=== PATIENT | female | born 1995 | race Caucasian/White ===

== ENCOUNTER 2017-02-10 15:57 | Outpatient (CLI) | payer MEDICAID ==
--- NOTE | ~2017-02-10 | HP ---
PATIENT'S NAME: CORNELIUS REA [facility] AGE: 21 Y [address] ROOM: [address] [address] LOCATION: BS ADMIT DATE: 02/10/2017 History & Physical DISCHARGE DATE: 02/10/2017 FAMILY PHYSICIAN: Elpidio Botello MD ATTENDING PHYSICIAN: Rahul Larios DATE OF SERVICE: REASON FOR ADMISSION: deceleration. HISTORY OF PRESENT ILLNESS: The patient is a 21-year-old, G2, P1-0-0-1 with intrauterine at 34 weeks and 6 days. This is complicated by IUGR less than at 5th percentile. She was seen in the office today and had NST done and had a couple of times where the heart rate was noted to be in the 80s. It was unknown if this was maternal or ; therefore, it was recommended she come over for an extended monitoring. She had normal FARIDEH in the clinic today. PHYSICAL EXAMINATION: VITAL SIGNS: 105/57, heart rate 93, and temperature 98. GENERAL: She is alert and oriented in no acute distress. ABDOMEN: Soft, nontender, gravid. : heart tones, baseline, 135, moderate variability, positive accels, no decels. [employer] irritability. ASSESSMENT: The patient is a 21-year-old, G2, P1-0-0-1, with intrauterine at 34 weeks, 6 days who presents for extended monitoring. PLAN: Okay for discharge home as scales has been reassuring since admission. We will review labor precautions. MD FAYE MOULTON/kimberly /[id number] D: T: HISTORY & PHYSICAL
[~2017-02-10 15:57] MED LIST: ACETAMINOPHEN325 MG PO; AUGMENTIN250 MG PO; CELEXA10 MG PO; PRENATAL 1+1)(P1 TAB PO; PROVENTIL OR V6.7 GM INH; augmentin
[2017-02-10] MEDS ORDERED: ZOLOFT25 MG PO (16:51)
--- NOTE | 2017-02-10 17:36 | NUR ---
Last VS: T:98.0 P:93 R:16 BP: 105/57 Pain ratin. Last pain med: None given Medicated at: Effective: Yes FHT: 145 Dilatation: No VE done during admission process Significant event: FHT's reactive with accels. Has occasional irregular contractions that she rates a "5".
== END 2017-02-10 19:45 | disposition disaster alternative care site (69) ==
LOC: GOBS 15:57 → GOBM 15:57
DX: O76 Abnormality in fetal heart rate and rhythm complicating labor and delivery (principal); O36.5930 Maternal care for other known or suspected poor fetal growth, third trimester, not applicable or unspecified; Z3A.34 34 weeks gestation of pregnancy
CPT/HCPCS: G0463

== ENCOUNTER 2017-02-25 18:02 | Inpatient (IN) | payer MEDICAID ==
[~2017-02-25] VITALS: Ht 154.9 cm; Wt 59.3 kg
--- NOTE | ~2017-02-25 | OR ---
PATIENT'S NAME: CORNELIUS REA [facility] AGE: 21 Y [address] ROOM: [place] [id number] LOCATION: [facility] ADMIT DATE: 02/25/2017 OR/Procedure Report DISCHARGE DATE: FAMILY PHYSICIAN: Elpidio Botello MD ATTENDING PHYSICIAN: Rahul Larios SURGEON: Rahul Larios MD INTERNATIONAL MARKETING MANAGER: DATE OF PROCEDURE: 02/26/2017 Vaginal Delivery Note PREOPERATIVE DIAGNOSES: 1. Intrauterine , 37 weeks 1 day. 2. intrauterine growth retardation or restriction less than the 3rd percentile. 3. Insufficient care. 4. Tobacco use. 5. History of delayed hemorrhage. POSTOPERATIVE DIAGNOSES: 1. Intrauterine , 37 weeks 1 day. 2. intrauterine growth retardation or restriction less than the 3rd percentile. 3. Insufficient care. 4. Tobacco use. 5. History of delayed hemorrhage. ANESTHESIA: Epidural. FINDINGS: Viable male with Score of 8 and 9 and weight of 2960 g. Placenta intact with 3-vessel cord. Right-sided cleft lip and cleft palate. ESTIMATED BLOOD LOSS: 300 mL. INDICATIONS: The patient is a 21-year-old female with an intrauterine at 37 weeks 0 days, who presented last night for cervical ripening. She had 2 doses of gel. She then had Pitocin started. She was found to be closed on admission. She is GBS negative. After 2 doses of gel, she then had Pitocin started. She progressed to 2 cm and had artificial rupture of membranes of clear fluid. Pitocin was continued per protocol, and she progressed to complete and started maternal expulsive efforts. DESCRIPTION OF PROCEDURE: The patient was placed in dorsal lithotomy. She was prepped and draped in the usual fashion. head was delivered with PATIENT'S NAME: CORNELIUS REA [facility] AGE: 21 Y [address] ROOM: [place] [address] LOCATION: [facility] ADMIT DATE: 02/25/2017 OR/Procedure Report DISCHARGE DATE: FAMILY PHYSICIAN: Elpidio Botello MD ATTENDING PHYSICIAN: Rahul Larios expulsive effort in the MELISSA position. The anterior shoulder then delivered followed by the remainder of the fetus. The cord was clamped and cut, and the was handed to the awaiting delivery nurse. A cleft lip and cleft palate were noted. Cord gases were obtained. Cord blood was obtained. The placenta was then delivered spontaneously intact with 3-vessel cord. No cervical, vaginal, or perineal lacerations were noted. Instrument, sponge, and needle counts were correct at the conclusion of the case. MD FAYE MOULTON/kimberly /[id number] d: 02/26/172204 t: 03/06/17 1340, OPERATIVE SUMMARY
[~2017-02-25 18:02] MED LIST changes: +ZOLOFT25 MG PO
[2017-02-25 19:44] LABS: BASOPHIL % 0.3 %; EOSINOPHIL # 0.1 K/uL (0.0-0.5); EOSINOPHIL % 0.8 %; HEMATOCRIT 34.9 % (33.0-46.0); HEMOGLOBIN 11.8 g/dL (11.0-15.0); IMMATURE GRANULOCYTE # 0.1 K/uL (0.0-0.3); LYMPHOCYTE # 2.1 K/uL (0.8-4.0); MCHC 33.8 gm/dL (32.0-36.5); MCV 88.8 fl (83.0-98.0); MONOCYTE # 0.7 K/uL (0.0-1.0); MONOCYTE % 7.3 %; MPV 10.5 fl (9.4-12.4); NEUTROPHIL # (ANC) 6.2 K/uL (1.8-7.8); NEUTROPHIL % 67.6 %; NRBC % 0 /100WBC (0-0.00); PLATELET COUNT 240 K/uL (150-450); RBC 3.93 M/uL (3.50-5.00); WBC 9.1 K/uL (4.0-11.0)
[2017-02-26 15:11] LABS: BICARBONATE 21.5 mmol/L (18.0-23.0); PCO2 46 mmHg (35-45); PO2 18 mmHg (80-90)
--- NOTE | 2017-02-26 17:46 | NUR ---
VSS, has not been up, fundus firm, -1, small flow. NIA. Suraj at 1530. Pt requests Zoloft in AM.
[2017-02-27 05:01] LABS: BASOPHIL % 0.3 %; EOSINOPHIL # 0.1 K/uL (0.0-0.5); EOSINOPHIL % 0.6 %; HEMATOCRIT 32.4 % (33.0-46.0); HEMOGLOBIN 10.8 g/dL (11.0-15.0); IMMATURE GRANULOCYTE # 0.1 K/uL (0.0-0.3); IMMATURE GRANULOCYTE % 0.9 %; LYMPHOCYTE # 2.3 K/uL (0.8-4.0); LYMPHOCYTE % 19.6 %; MCH 30.1 pg (27.0-34.0); MCHC 33.3 gm/dL (32.0-36.5); MCV 90.3 fl (83.0-98.0); MONOCYTE # 0.8 K/uL (0.0-1.0); MONOCYTE % 7.1 %; MPV 10.2 fl (9.4-12.4); NEUTROPHIL # (ANC) 8.3 K/uL (1.8-7.8); NEUTROPHIL % 71.5 %; NRBC % 0 /100WBC (0-0.00); PLATELET COUNT 223 K/uL (150-450); RBC 3.59 M/uL (3.50-5.00); RDW-CV 13.1 % (11.9-14.6); WBC 11.6 K/uL (4.0-11.0)
--- NOTE | 2017-02-27 15:47 | NUR ---
Met with patient at the NICU today. Introduced myself and explained my role of the CM department. Baby was born with a cleft palate so he is in the NICU and mom and dad are learning how to feed him. I provided Guerda with a list of community resources and voucher for the [facility]. Mom is not yet connected with [facility] so I encouraged her to do that. I also instructed her to contact Medicaid and notify them of Vin's . I provided Guerda with reading material on post depression and reviewed signs and symptoms to watch for. Patient does have a history so I stressed the importance of notifying her physician if she starts to experience any of the signs. Guerda states that she does not have custody of her 2 year old son as she voluntarily gave her aunt temporary custody of him. She also states Vin's father does not have custody of his 5 year old son, that this child resides with his mom. I did ask Guerda if [facility] or CPS was involved when she gave her aunt temporary custody of her 2 year old and she states there was no involvement with [facility]. Vin will need to use a Special Needs Feeder for all feeds. I called [facility], [place], [facility], [facility], [employer], [employer], and [facility] and none of these sell or provide the Special Needs Feeder. [employer] does sell them so encouraged mom to get a few from there. Will continue to follow as baby will likely be here until next week.
--- NOTE | 2017-02-27 18:00 | NUR ---
02/27/17 1800: vss. Last pain meds Motrin or Tylenol this am. In Nicu freq.. Pumping breasts.
--- NOTE | 2017-02-28 05:55 | NUR ---
Last VS: T:98.7 P:65 R: 20 BP: 116/62 Pain rating: Last pain med: Medicated at: Effective: Breasts: , Nipples: Fundus:, , Lochia: , Epis/Perineum: , , Voiding well: Significant event: pt up ad maico. walks to nicu often to feed baby.
[2017-02-28] MEDS ORDERED: SURFAK240 MG PO (08:54)
[2017-02-28] MEDS ORDERED: NICODERM / HABIT7 MG TRANS (08:58)
[2017-02-28] MEDS ORDERED: NICOTINE TRANS (09:00)
[2017-02-28] MEDS ORDERED: ZOLOFT25 MG PO (09:02)
[2017-02-28] MEDS ORDERED: MOTRIN800 MG PO (09:02)
[2017-02-28] MEDS ORDERED: TUMS200 MG PO (09:02)
[2017-02-28] MEDS ORDERED: PERCOCET 5-3251 EACH PO (09:03)
[2017-02-28] MEDS ORDERED: LANSINOH7 GM TOP (09:03)
== END 2017-02-28 18:10 | disposition disaster alternative care site (69) | DRG 775 ==
LOC: GOBM 18:02 → GOBS 18:02 → GOBM 18:03 → GOBS 02-28 18:10
PROVIDERS: ADMIT Obstetrics & Gynecology
PROC: 10E0XZZ Delivery of Products of Conception, External Approach (ICD-10-PCS; principal; 2017-02-26)
DX: O36.5930 Maternal care for other known or suspected poor fetal growth, third trimester, not applicable or unspecified (principal); O99.344 Other mental disorders complicating childbirth; F32.9 Major depressive disorder, single episode, unspecified; Z3A.37 37 weeks gestation of pregnancy; Z37.0 Single live birth; O09.33 Supervision of pregnancy with insufficient antenatal care, third trimester; O99.334 Smoking (tobacco) complicating childbirth; F17.290 Nicotine dependence, other tobacco product, uncomplicated
CPT/HCPCS: J2590; J3010; J7120

== ENCOUNTER 2017-03-20 21:54 | Emergency (ER) | payer MEDICAID ==
--- NOTE | ~2017-03-20 | ER ---
PATIENT'S NAME: CORNELIUS REA [facility] AGE: 21 Y [address] ROOM: [place] [address] LOCATION: ED ADMIT DATE: 03/20/2017 ER/Outpatient Report DISCHARGE DATE: 03/20/2017 FAMILY PHYSICIAN: Joey Price MD ATTENDING PHYSICIAN: Divya Vazquez Time of Arrival: 2154 hours. Time of Evaluation: 2156 hours. IDENTIFICATION: A 21-year-old female. CHIEF COMPLAINT: Vaginal bleeding. HISTORY OF PRESENT ILLNESS: The patient had an intrauterine at 37 weeks' gestation, complicated by IUGR and delivered via normal vaginal delivery on February [address] Larios. Baby had a cleft lip and cleft palate and was in the intensive care unit for what sounds like a couple of weeks and discharged home, but returned back today with influenza B. Cornelius was up on the floor with the baby going to the bathroom when she developed vaginal bleeding. She has a history of hemorrhage and therefore became concerned and came to the emergency room. On arrival to the emergency room, she is very anxious, but denies lightheadedness and denies pain. She has had normal post-delivery bleeding and the last week has had no bleeding until tonight. ALLERGIES: TO OXYCODONE. CURRENT MEDICATIONS: Zoloft. MEDICAL PROBLEMS: History of previous hemorrhage, history of right-sided pyelonephritis and sepsis in October of 2016, and depression. PRIOR SURGERIES: Two normal vaginal deliveries. SOCIAL HISTORY: The patient lives at home with her boyfriend and 1 child, a second child now who was in the hospital with influenza B. REVIEW OF SYSTEMS: PATIENT'S NAME: CORNELIUS REA [facility] AGE: 21 Y [address] ROOM: [place] [address] LOCATION: ED ADMIT DATE: 03/20/2017 ER/Outpatient Report DISCHARGE DATE: 03/20/2017 FAMILY PHYSICIAN: Joey Price MD ATTENDING PHYSICIAN: Divya Vazquez All systems reviewed and negative other than what is noted in the HPI. FAMILY HISTORY: Mother secondary to cancer 1 year ago. PHYSICAL EXAMINATION: VITAL SIGNS: Blood pressure 135/79, pulse 91, respirations 16, temperature 98.4, and saturations 95% on room air. GENERAL: A 21-year-old female, in no acute distress, but very anxious. HEENT: Head: Normocephalic, atraumatic. Eyes: Pupils equal and reactive to light and accommodation. Extraocular movements intact. TMs not visualized. Nose: Mucosa pink, no lesions. Mouth: No lesions. Pharynx benign. NECK: Supple. No lymphadenopathy. LUNGS: Clear to auscultation. Breath sounds are equal. HEART: Regular rate and rhythm. No murmur, rub, or gallop. ABDOMEN: Soft, nondistended, nontender. SKIN: [place], warm, and dry. No lesions or rashes noted. NEURO: No focal deficit. No lower extremity edema. PELVIC: External genitalia normal. Vagina normal. Mild amount of blood in the vaginal vault. Cervix is closed. Uterus soft, mobile, nontender. Adnexa, no masses or tenderness. LABORATORY DATA: Hemoglobin 12.8, hematocrit 38.2, platelets 295, white count 6.1 with a normal differential. HCG 1. Clot to bank. Type O negative. EMERGENCY DEPARTMENT COURSE: The patient remained hemodynamically stable in the ER with minimal vaginal bleeding. IMPRESSION: Vaginal bleeding. PLAN: Home to rest. Pelvic rest. Follow up with Dr. Larios next week. Follow up sooner if any problems or concerns. The patient and her aunt understand and agree, and all questions have been answered. DIVYA VAZQUEZ MD CAR/modl PATIENT'S NAME: CORNELIUS REA [facility] AGE: 21 Y [address] ROOM: [place] [address] LOCATION: [facility] ADMIT DATE: 03/20/2017 ER/Outpatient Report DISCHARGE DATE: 03/20/2017 FAMILY PHYSICIAN: Joey Price MD ATTENDING PHYSICIAN: Divya Vazquez /[id number] d: 03/21/17 0203 t: 03/22/17 0344, OUTPATIENT REPORT
[~2017-03-20 21:54] MED LIST changes: +LANSINOH7 GM TOP; +MOTRIN800 MG PO; +NICODERM / HABIT7 MG TRANS; +NICOTINE TRANS; +PERCOCET 5-3251 EACH PO; +SURFAK240 MG PO; +TUMS200 MG PO
[2017-03-20 22:41] LABS: BASOPHIL % 0.5 %; EOSINOPHIL # 0.1 K/uL (0.0-0.5); EOSINOPHIL % 2.1 %; HEMATOCRIT 38.2 % (33.0-46.0); HEMOGLOBIN 12.8 g/dL (11.0-15.0); IMMATURE GRANULOCYTE % 0.3 %; LYMPHOCYTE # 2.5 K/uL (0.8-4.0); LYMPHOCYTE % 40.5 %; MCH 29.7 pg (27.0-34.0); MCHC 33.5 gm/dL (32.0-36.5); MCV 88.6 fl (83.0-98.0); MONOCYTE # 0.3 K/uL (0.0-1.0); MONOCYTE % 5.6 %; MPV 9.6 fl (9.4-12.4); NEUTROPHIL # (ANC) 3.1 K/uL (1.8-7.8); NRBC % 0 /100WBC (0-0.00); PLATELET COUNT 295 K/uL (150-450); RBC 4.31 M/uL (3.50-5.00); RDW-CV 13.2 % (11.9-14.6); WBC 6.1 K/uL (4.0-11.0)
[2017-03-20 23:04] LABS: INR - (THERAPEUTIC) 1.02 (0.92-1.07); PROTIME 10.7 SECONDS (9.8-11.4); PTT 33 SECONDS (25-32)
== END 2017-03-20 23:36 | disposition disaster alternative care site (69) ==
LOC: GMED 21:54
PROVIDERS: Family Medicine
DX: O72.1 Other immediate postpartum hemorrhage (principal); F32.9 Major depressive disorder, single episode, unspecified; Z88.5 Allergy status to narcotic agent; Z79.899 Other long term (current) drug therapy

== ENCOUNTER → 2017-05-23 | Outpatient (CLI) | payer MEDICAID | END | disposition disaster alternative care site (69) | LOC: GAMB 07:06 | DX: S49.91XA Unspecified injury of right shoulder and upper arm, initial encounter (principal); S40.011A Contusion of right shoulder, initial encounter; M25.511 Pain in right shoulder; Y04.8XXA Assault by other bodily force, initial encounter | CPT/HCPCS: A0425; A0429 ==